=== PATIENT | female | born 1995 | race Caucasian/White ===

== ENCOUNTER 2017-02-06 15:16 | Emergency (ER) | payer OTHER ==
[~2017-02-06] VITALS: Ht 167.6 cm; Wt 55.0 kg
[~2017-02-06 15:16] MED LIST: [UNRECOGNIZED DRUG - CODE]
[2017-02-06 15:58] VITALS: BP 127/70; PULSE 86; RESP 20; TEMP 98.7; O2SAT 95
[2017-02-06 16:37] VITALS: BP 124/65; PULSE 74; RESP 20; O2SAT 100
[2017-02-06 16:45] VITALS: BP 125/68; PULSE 76; RESP 18; O2SAT 98
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
[2017-02-06] MEDS ORDERED: IBUPROFEN 600 MG TAB PO ONE (18:00)
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
[2017-02-06] MEDS ORDERED: IBUP-232 PO (18:37)
[2017-02-07] MEDS ORDERED: MUPI2%T TOPICAL (00:19)
== END 2017-02-06 19:04 | disposition home or self-care (01) ==
LOC: NEPE 15:16
DX: S01.111A Laceration without foreign body of right eyelid and periocular area, initial encounter (principal); S40.021A Contusion of right upper arm, initial encounter; S83.91XA Sprain of unspecified site of right knee, initial encounter; V49.50XA Passenger injured in collision with unspecified motor vehicles in traffic accident, initial encounter; Y92.410 Unspecified street and highway as the place of occurrence of the external cause
CPT/HCPCS: 70450; 70486; 71010; 72125; 73060; 73564; 84703; 99285

== ENCOUNTER 2017-02-06 20:23 | Emergency (ER) | payer OTHER ==
[~2017-02-06 20:23] MED LIST changes: +IBUP-232 PO
[2017-02-06 20:25] VITALS: BP 133/72; PULSE 71; RESP 16; TEMP 99.1; O2SAT 98
[2017-02-07] MEDS ORDERED: MUPI2%T TOPICAL (00:19)
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
== END 2017-02-07 05:05 | disposition home or self-care (01) ==
LOC: NEPC 20:23
DX: S01.111A Laceration without foreign body of right eyelid and periocular area, initial encounter (principal); V49.50XA Passenger injured in collision with unspecified motor vehicles in traffic accident, initial encounter
CPT/HCPCS: 99283